=== PATIENT | female | born 1940 | race Caucasian/White ===

== ENCOUNTER 2025-07-21 06:05 | Emergency (ER) | payer MEDICARE ==
[~2025-07-21] VITALS: Ht 162.6 cm; Wt 71.9 kg
[~2025-07-21 06:05] MED LIST: ASPI81TA52 PO; LOVA20TA2 PO; METO50TA16 PO; RAMI10CA44 PO; SYN0.1T PO; VENL-190 PO
[2025-07-21 06:12] VITALS: TEMP 97.5
--- NOTE | 2025-07-21 06:25 | Physician Documentation ---
History of Present Illness General Chief Complaint: Rash Stated Complaint: FLU SYMPTOMS,RASH Time Seen by MD: 06:24 OK to notify your PCP?: No Primary Medical Doctor: WILLIE BRYAN Source: patient, RN notes reviewed Mode of Arrival: POV Exam Limitations: no limitations History of Present Illness Initial Comments 85 year old female presents complaining of a very itchy rash to her perineal/buttock area over the last 2-3 days, following three days of diarrhea. Patient reports diarrhea has resolved but rash is not improving despite applying "yeast cream." She reports difficulty sleeping at night due to itchiness of the rash. She denies any nausea or vomiting. 2-3 days ago she had a temperature of 99.9F but denies fever over the last two days. Medication Reconciliation Allergies: Coded Allergies: Sulfa (Sulfonamide Antibiotics) (Verified Allergy, 01/17/14) Scheduled Aspirin (Aspirin EC), 1 TAB PO DAILY Ketoconazole (Ketoconazole), 1 APPLIC TP TID Levothyroxine Sodium* (Synthroid*), 1 TAB PO DAILY, (Reported) Lovastatin* (Mevacor*), 1 TAB PO DAILY, (Reported) Metoprolol Tartrate (Metoprolol Tartrate), 1 TAB PO BID, (Reported) Ramipril* (Altace*), 1 CAP PO DAILY, (Reported) Venlafaxine HCl (Effexor Xr), 1 CAP PO BID, (Reported) Past Medical History Past Medical History: High Cholesterol, Hypothyroidism Past Surgical History: cholecystectomy, orthopedic surgeries Alcohol Use: None Lives with: Spouse Lives In: Home Review of Systems All Other Systems at this time: Reviewed and Negative ROS Perineal rash as well as other positive symptoms as stated above in the HPI, otherwise all systems are reviewed and negative. Physical Exam Physical Exam Vital Signs: RN Vital Signs have been reviewed: Yes, Temperature: 97.5, Source: Oral, Heart Rate: 78, Respiratory Rate: 16, BP: 118/62, Pulse Oximetry: 99, Weight: 71.900 Oxygen Flow Rate: 0 Pulse Oximetry Reflects: adequate oxygenation Physical Exam VITALS: Reviewed and as above. GENERAL: Alert, no apparent distress. HEENT: Normocephalic, atraumatic, PERRL, EOMI, dry mucosa RESPIRATORY: Lungs clear, normal breath sounds, no respiratory distress. CHEST: No accessory muscle use, no retractions CV: Regular rate, regular rhythm, no edema, no murmur, No: JVD MUSCULOSKELETAL: No deformities, no edema SKIN: Diffuse macular erythematous rash to the perineal area. Warm and dry NEURO: Oriented x4, No motor or sensory deficit PSYCH: Normal mood and affect, no agitation Progress Results/Orders Results/Orders Vital Signs 07/21/25 07/21/25 06:12 06:21 Temp 97.5 Pulse 78 Resp 16 16 B/P (MAP) 118/62 Pulse Ox 99 O2 Flow Rate 0 Medical Decision Making Additional info obtained from: old records (only other visit and admission in 2013 for syncope. ) Departure Time of Disposition: 06:46 Disposition: 01 HOME / SELF CARE / HOMELESS Impression: Primary Impression: Candidiasis Condition: Stable Discharge Instructions: Rash, Adult Additional Instructions: Apply cream as prescribed. Apply [id number] zinc oxide cream if rash becomes moist. Return to the ER for worsening symptoms or other concerns. Prescriptions Ketoconazole (Ketoconazole) 2 % Cream..g. 1 APPLIC TP TID, #30 GM Prov: DEXTER MAGAÑA MD 07/21/25 Education Educated: Patient Educated regarding: diagnosis, treatment, need for follow up Signature Scribe Signature: Scribed for Dexter Magaña MD by Dru Peterson . 07/21/25 06:45 DEXTER MAGAÑA MD Jul 21, 2025 06:25 DRU FREY Jul 21, 2025 06:50
[2025-07-21] MEDS ORDERED: KETO15CR2 TP (06:42)
[2025-07-21 06:58] VITALS: BP 118/70; PULSE 67; RESP 16; O2SAT 98
== END 2025-07-21 07:00 | disposition home or self-care (01) ==
LOC: ER 06:05
DX: B37.9 Candidiasis, unspecified (principal); E03.9 Hypothyroidism, unspecified; E78.00 Pure hypercholesterolemia, unspecified; Z88.2 Allergy status to sulfonamides; Z79.82 Long term (current) use of aspirin; Z90.49 Acquired absence of other specified parts of digestive tract
CPT/HCPCS: 99283

== ENCOUNTER 2025-08-29 12:25 | Emergency (ER) | payer MEDICARE ==
[~2025-08-29] VITALS: Ht 165.1 cm; Wt 74.8 kg
[~2025-08-29 12:25] MED LIST changes: +KETO15CR2 TP
[2025-08-29 13:32] LABS: MEAN PLATELET VOLUME 7.4 FL (7.4-10.4); RED CELL DISTRIBUTION WIDTH 13.7 % (11.5-14.5)
[2025-08-29 13:42] LABS: CREATININE 1.20 MG/DL (0.40-0.90); TOTAL CARBON DIOXIDE 30.3 MMOL/L (24-32); eCRCL 30 ML/MIN; eGFR 43 ML/MIN
--- NOTE | 2025-08-29 13:48 | Physician Documentation ---
History of Present Illness General Chief Complaint: Post-operative complication Stated Complaint: POST OP COMPLICATIONS Time Seen by MD: 13:48 Primary Medical Doctor: WILLIE BRYAN History of Present Illness Initial Comments Patient is a an 85-year-old female who presents to the emergency room with pain to her left knee swelling and some redness to the left knee. Patient states that on Sunday six days prior to her arrival the patient had a left knee replacement at [facility]. She states she was discharged in the next day. The patient states over the last two days she has had increased pain in that left knee and increased swelling and redness. She states she feels like the skin is hot. Patient states she has had to increase her pain medication dose to two pills of her [place] last night. Patient denies any fevers. She states she has not been able to contact her surgeon. Medication Reconciliation Allergies: Coded Allergies: Sulfa (Sulfonamide Antibiotics) (Verified Allergy, Unknown, 08/29/25) Scheduled Aspirin (Aspirin EC), 1 TAB PO DAILY Doxycycline Monohydrate (Doxycycline Monohydrate), 100 MG PO BID Ketoconazole (Ketoconazole), 1 APPLIC TP TID Levothyroxine Sodium* (Synthroid*), 1 TAB PO DAILY, (Reported) Lovastatin* (Mevacor*), 1 TAB PO DAILY, (Reported) Metoprolol Tartrate (Metoprolol Tartrate), 1 TAB PO BID, (Reported) Ramipril* (Altace*), 1 CAP PO DAILY, (Reported) Venlafaxine HCl (Effexor Xr), 1 CAP PO BID, (Reported) Past Medical History Past Medical History: High Cholesterol, Hypothyroidism Past Surgical History: cholecystectomy, orthopedic surgeries Alcohol Use: None Lives with: Spouse Lives In: Home Review of Systems All Other Systems at this time: Reviewed and Negative Physical Exam Physical Exam Vital Signs: Temperature: 97.9, Source: Temporal, Heart Rate: 86, Respiratory Rate: 18, BP: 123/99, Pulse Oximetry: 99, Weight: 74.800 Oxygen Flow Rate: 0 Physical Exam VITALS: Reviewed and as above. GENERAL: Alert, no apparent distress. HEENT: Normocephalic, atraumatic, PERRL, EOMI, dry mucosa, no erythema RESPIRATORY: Lungs clear, normal breath sounds, no respiratory distress. CHEST: No accessory muscle use, no retractions CV: Regular rate, rhythm, no edema, no murmur, No: JVD GI: Soft, non-tender, bowels sounds present, no rebound, guarding, or rigidity BACK: No CVA tenderness, or swelling MUSCULOSKELETAL: Swelling and tenderness to left knee patient has not 15 cm surgical scar which does not have any apparent drainage or dehiscence, she does have erythema over an area of a proximally 10 x 10 cm over the patella. Patient does have decent range of motion without significant pain. He does have swelling over the patellar region. SKIN: Warm and dry, as above NEURO: Oriented x4, No motor or sensory deficit PSYCH: Normal mood and affect, no agitation Progress Results/Orders Results/Orders Completed Orders - OHLFS,DEXTER Pagan MD Cbc/Diff (08/29/25 12:44) BMP (08/29/25 12:44) ESR (08/29/25 14:02) Procalcitonin (08/29/25 14:02) C-Reactive Protein (08/29/25 13:13) Doxycycline 100mg Capsule (Vibramycin 10 (08/29/25 15:00) Vital Signs 08/29/25 08/29/25 08/29/25 08/29/25 12:40 13:51 13:54 15:14 Temp 97.9 97.9 Pulse 86 76 74 Resp 18 18 16 18 B/P (MAP) 123/99 143/57 (85) 145/78 Pulse Ox 99 97 96 O2 Flow Rate 0 0 Laboratory Tests Test 08/29/25 13:13 White Blood Count 8.2 Red Blood Count 3.66 L Hemoglobin 11.4 L Hematocrit 33.7 L Mean Corpuscular Volume 92.1 Mean Corpuscular Hemoglobin 31.2 H Mean Corpuscular Hemoglobin Concent 33.8 Red Cell Distribution Width 13.7 Platelet Count 367 Mean Platelet Volume 7.4 Neutrophils (%) (Auto) 74.9 Lymphocytes (%) (Auto) 12.0 L Monocytes (%) (Auto) 5.9 Eosinophils (%) (Auto) 6.9 H Basophils (%) (Auto) 0.3 Neutrophils # (Auto) 6.2 Lymphocytes # (Auto) 1.0 L Monocytes # (Auto) 0.5 Eosinophils # (Auto) 0.6 Basophils # (Auto) 0.0 CBC Comment Erythrocyte Sedimentation Rate 62 H Sodium Level 141 Potassium Level 4.1 Chloride Level 105 Carbon Dioxide Level 30.3 Anion Gap 6 L Blood Urea Nitrogen 26 H Creatinine 1.20 H Estimated GFR/1.73 m2 43 BUN/Creatinine Ratio 21.7 H Glucose Level 137 H Calcium Level 8.8 C-Reactive Protein 4.21 H Albumin 3.2 L Procalcitonin < 0.05 Chemistry Comments Medical Decision Making Findings Patient presents with a redness and slight swelling to postop left knee in the region of the patella, she does have no significant pain when I range the knee. She is not systemically toxic her procalcitonin is normal and her ESR and CRP are elevated. I discussed with the mid-level provider for the surgeon Oumou Marr the case I also sent her a picture she feels that the patient would benefit from doxycycline and at this time there was no evidence for obvious joint infection the patient may have just some cellulitis the patient will be discharged on doxycycline clean a prescription has been sent. Prior hospitalizations have been reviewed the patient's pulse oximetry was interpreted as normal the patient received a dose of 100 mg doxycycline here. Departure Time of Disposition: 15:05 Disposition: 01 HOME / SELF CARE / HOMELESS Impression: Primary Impression: Postoperative pain of extremity Additional Impression: Cellulitis Discharge Instructions: Cellulitis, Adult, [id number] Referrals: NO PRIMARY CARE PROVIDER (PCP) Prescriptions Doxycycline Monohydrate (Doxycycline Monohydrate) 100 Mg Capsule 100 MG PO BID, #14 CAP may sub doxycycline hyclate Prov: DEXTER MAGAÑA MD 08/29/25 Signature Scribe Signature: no scribe Attestation: The note accurately reflects work and decisions made by me.Dexter Magaña MD 08/31/25 10:08 DEXTER MAGAÑA MD Aug 29, 2025 13:48
[2025-08-29] MEDS ORDERED: DOXY100C43 PO (15:02)
[2025-08-29] MEDS: DOXYCYCLINE 100MG CAPSULE PO STA (15:13)
[2025-08-29 15:14] VITALS: BP 145/78; PULSE 74; RESP 18; TEMP 97.9; O2SAT 96
== END 2025-08-29 15:18 | disposition home or self-care (01) ==
LOC: ER 12:25
DX: G89.18 Other acute postprocedural pain (principal); L03.116 Cellulitis of left lower limb; E78.00 Pure hypercholesterolemia, unspecified; E03.9 Hypothyroidism, unspecified; Z88.2 Allergy status to sulfonamides; Z90.49 Acquired absence of other specified parts of digestive tract; Z79.82 Long term (current) use of aspirin; Z79.899 Other long term (current) drug therapy; Z98.890 Other specified postprocedural states
CPT/HCPCS: 36415; 80048; 84145; 85025; 85651; 86140; 99283